=== PATIENT | female | born 1965 | race Caucasian/White ===

== ENCOUNTER 2019-10-04 13:39 | Emergency (ER) | payer BC ==
[~2019-10-04] VITALS: Ht 154.9 cm; Wt 117.9 kg
[~2019-10-04 13:39] MED LIST: IBUPROFEN 600600 M1 PO; NOHOMEMEDICATIONS; NORCO 5-325 TA1 EACH PO; ULTRAM 50MG TAB50 MG PO
[2019-10-04 13:53] VITALS: BP 179/68
== END 2019-10-04 15:23 | disposition home or self-care (01) ==
LOC: M.ERS 13:39
DX: S81.812A Laceration without foreign body, left lower leg, initial encounter (principal); Z98.890 Other specified postprocedural states; Z90.710 Acquired absence of both cervix and uterus; W01.0XXA Fall on same level from slipping, tripping and stumbling without subsequent striking against object, initial encounter; Y93.89 Activity, other specified; Y92.89 Other specified places as the place of occurrence of the external cause; Y99.9 Unspecified external cause status